=== PATIENT | male | born 1955 | race Caucasian/White ===

== ENCOUNTER 2016-11-09 07:23 | Observation (INO) | payer BC ==
[2016-11-09] VITALS (7 sets, daily range): BP systolic 111–199; BP diastolic 60–86; PULSE 64–102; RESP 16–20; TEMP 97.7–98; O2SAT 96–97
[~2016-11-09] VITALS: Ht 177.8 cm; Wt 90.0 kg
[2016-11-09] MEDS ORDERED: PRAV40TA2 PO (07:43)
[2016-11-09] MEDS ORDERED: CIAL5TAB PO (07:43)
[2016-11-09] MEDS ORDERED: BENA20TA3 PO (07:43)
[2016-11-09] MEDS ORDERED: VITA100021 SL (07:43)
[2016-11-09] MEDS ORDERED: METH36 PO (07:43)
[2016-11-09] MEDS ORDERED: ARIP1TAB7 PO (07:43)
[2016-11-09] MEDS ORDERED: ASPI81CH37 CHEW (07:43)
[2016-11-09] MEDS ORDERED: BUPR1TAB74 PO (07:43)
[2016-11-09] MEDS ORDERED: PIOG1TAB39 PO (07:43)
[2016-11-09] MEDS ORDERED: CINN500C12 PO (07:43)
[2016-11-09] MEDS ORDERED: CLOP75TA PO (07:43)
[2016-11-09] MEDS ORDERED: ONDANSETRON HCL 4 MG/2 ML VIAL IV PUSH ONE (07:45)
[2016-11-09] MEDS ORDERED: SODIUM CHLORIDE 0.9% FLUSH 10 ML FLUSH IVF PRN (07:45)
[2016-11-09] MEDS ORDERED: NITROGLYCERIN 2% OINT 1 GM PACKET TOP ONE (07:45)
[2016-11-09] MEDS ORDERED: MORPHINE SULFATE 4 MG/ML INJ IV PUSH ONE (07:45)
[2016-11-09] MEDS ORDERED: ASPIRIN 81 MG CHEW TAB PO ONE (07:45)
[2016-11-09 08:05] LABS: AUTOMATED NEUTROPHIL # 7.3 TH/MM3 (1.8-7.7); BASOPHIL % 0.3 % (0.0-2.0); EOSINOPHIL % 0.5 % (0.0-4.0); HEMATOCRIT 40.5 % (39.0-51.0); HEMO FLAGS DIFF FINAL; LYMPH % 15.8 % (9.0-44.0); LYMPHOCYTE # 1.5 TH/MM3 (1.0-4.8); MEAN CELL VOLUME 89.9 FL (80.0-100.0); MEAN CORPUSCULAR HEMOGLOBIN 29.3 PG (27.0-34.0); MEAN CORPUSCULAR HGB CONC 32.5 % (32.0-36.0); MONO % 7.9 % (0.0-8.0); NEUT % 75.5 % (16.0-70.0); PLATELET COUNT 254 TH/MM3 (150-450); RED CELL DISTRIBUTION WIDTH 14.6 % (11.6-17.2); WHITE BLOOD COUNT 9.6 TH/MM3 (4.0-11.0)
--- NOTE | 2016-11-09 08:14 | RADRPT ---
EXAM DATE/TIME: 11/09/2016 07:40 [place] COMPARISON: No previous studies available for comparison. INDICATIONS : Chest pain MEDICAL HISTORY : Hypertension. Diabetes mellitus type II. SURGICAL HISTORY : None. ENCOUNTER: Initial ACUITY: 1 day PAIN SCORE: 6/10 LOCATION: Bilateral chest FINDINGS: A single view of the chest demonstrates the lungs to be symmetrically aerated without evidence of mas s, infiltrate or effusion. The cardiomediastinal contours are unremarkable. Osseous structures are intact. CONCLUSION: No acute disease. Derrick Joseph MD on November 09, 2016 at 8:11 Board Certified Radiologist. This report was verified electronically.
[2016-11-09 08:18] LABS: APTT (PATIENT) 24.4 SEC (24.3-30.1); PROTHROMBIN TIME - PATIENT 10.6 SEC (9.8-11.6)
[2016-11-09 08:25] LABS: ANION GAP 6 MEQ/L (5-15); BICARBONATE 28.6 MEQ/L (21.0-32.0); BLOOD UREA NITROGEN 16 MG/DL (7-18); CHLORIDE 104 MEQ/L (98-107); GLOMERULAR FILTRATION RATE 58 ML/MIN (>89); MAGNESIUM 1.8 MG/DL (1.5-2.5); POTASSIUM 4.3 MEQ/L (3.5-5.1); SODIUM (NA) 139 MEQ/L (136-145)
[2016-11-09 08:29] LABS: CREATINE KINASE 243 U/L (39-308)
[2016-11-09 08:42] LABS: CKMB 1.2 NG/ML (0.5-3.6)
--- NOTE | 2016-11-09 08:42 | PD ---
HPI . Chest pain Chief Complaint: Chest Pain Time Seen by Provider: 07:36 Travel History International Travel<30 days: No Contact w/Intl Traveler<30days: No Traveled to known affect area: No History of Present Illness HPI This patient presents with a chief complaint of chest pain. Onset was 3 hours prior to presentation and is continuous. It awakened him from sleep. He states it is located just to the right of his sternum and he describes it as an ache. He rates the pain 7/10. He notes no modifying factors. It is associated with some mild nausea but no shortness of breath, diaphoresis, dizziness. He denies any previous similar history. He states that he does not use tobacco products, alcohol or illicit drugs. He does have a past medical history of hypertension, hyperlipidemia, diabetes and previous CVA. PFSH Past Medical History Hx Anticoagulant Therapy: Yes (plavix) Cerebrovascular Accident: Yes Diabetes: Yes Patient Takes Glucophage: Yes Hypertension: Yes Thyroid Disease: Yes Tetanus Vaccination: > 5 Years Influenza Vaccination: Yes Past Surgical History Surgical History: No Previous Surgery Social History Alcohol Use: No Tobacco Use: No Substance Use: No Allergies-Medications (Allergen,Severity, Reaction): Coded Allergies: No Known Allergies (Unverified , 11/09/16) Reported Meds & Prescriptions Reported Meds & Active Scripts Active Reported Clopidogrel (Clopidogrel Bisulfate) 75 Mg Tab 75 Mg PO DAILY Aspirin Low Dose (Aspirin) 81 Mg Chew 81 Mg CHEW DAILY Pravastatin 40 Mg Tab 40 Mg PO DAILY Cialis (Tadalafil) 5 Mg Tab 5 Mg PO DAILY Do not exceed 1 dose/day. Benazepril-Hydrochlorothiazide 20-12.5 Mg Tab 1 Tab PO DAILY Vitamin B-12 (Cyanocobalamin) 1,000 Mcg Subl 1,000 Mcg SL DAILY Hm Cinnamon (Cinnamon) 500 Mg Cap 1,000 Mg PO DAILY Concerta (Methylphenidate HCl) 36 Mg Gaudencio 36 Mg PO DAILY Pioglitazone-Metformin 15-850 mg Tab 1 Tab PO BID Bupropion HCl ER 12 HR (Bupropion HCl) 200 Mg Tab 200 Mg PO Q12HR Abilify (Aripiprazole) 20 Mg Tab 20 Mg PO DAILY Review of Systems Except as stated in HPI: all other systems reviewed are Neg General / Constitutional: No: Fever, Chills HENT: No: Headaches, Lightheadedness Cardiovascular: Positive: Chest Pain or Discomfort Respiratory: No: Shortness of Breath Gastrointestinal: No: Nausea Physical Exam Narrative GENERAL: The patient is lying very quietly on the stretcher in no acute distress. He has his eyes closed most of the time. SKIN: Warm and dry. HEAD: Atraumatic. Normocephalic. EYES: Pupils equal and round. Extraocular movements are intact. ENT: No nasal bleeding or discharge. Mucous membranes pink and moist. NECK: Trachea midline. Neck is supple. CARDIOVASCULAR: Regular rate and rhythm. Heart sounds are normal. RESPIRATORY: No accessory muscle use. Lungs are clear with good air movement throughout. Chest wall is nontender to palpation. GASTROINTESTINAL: Abdomen soft, non-tender, nondistended. MUSCULOSKELETAL: No obvious deformities. No edema. NEUROLOGICAL: Awake and alert. No obvious cranial nerve deficits. Motor grossly within normal limits. Normal speech. PSYCHIATRIC: Appropriate mood and affect; insight and judgment normal. Data Data Last Documented VS Vital Signs Date Time Temp Pulse Resp B/P (MAP) Pulse Ox O2 Delivery O2 Flow Rate FiO2 11/09/16 07:44 18 97 Room Air 11/09/16 07:33 66 11/09/16 07:26 97.7 Orders Orders Electrocardiogram (11/09/16 ) Electrocardiogram (11/09/16 07:36) Basic Metabolic Panel (Bmp) (11/09/16 07:36) Ckmb (Isoenzyme) Profile (11/09/16 07:36) Complete Blood Count With Diff (11/09/16 07:36) Magnesium (Mg) (11/09/16 07:36) Prothrombin Time / Inr (Pt) (11/09/16 07:36) Act Partial Throm Time (Ptt) (11/09/16 07:36) Troponin I (11/09/16 07:36) Chest, Single Ap (11/09/16 07:36) Ecg Monitoring (11/09/16 07:36) Iv Access Insert/Monitor (11/09/16 07:36) Oximetry (11/09/16 07:36) Aspirin Chew (Aspirin Chew) (11/09/16 07:45) Morphine Inj (Morphine Inj) (11/09/16 07:45) Nitroglycerin 2% Oint (Nitroglycerin 2% (11/09/16 07:45) Sodium Chloride 0.9% Flush (Ns Flush) (11/09/16 07:45) Ondansetron Inj (Zofran Inj) (11/09/16 07:45) CKMB (11/09/16 07:51) CKMB% (11/09/16 07:51) Labs Laboratory Tests Test 11/09/16 07:51 White Blood Count 9.6 TH/MM3 Red Blood Count 4.50 MIL/MM3 Hemoglobin 13.2 GM/DL Hematocrit 40.5 % Mean Corpuscular Volume 89.9 FL Mean Corpuscular Hemoglobin 29.3 PG Mean Corpuscular Hemoglobin Concent 32.5 % Red Cell Distribution Width 14.6 % Platelet Count 254 TH/MM3 Mean Platelet Volume 8.9 FL Neutrophils (%) (Auto) 75.5 % Lymphocytes (%) (Auto) 15.8 % Monocytes (%) (Auto) 7.9 % Eosinophils (%) (Auto) 0.5 % Basophils (%) (Auto) 0.3 % Neutrophils # (Auto) 7.3 TH/MM3 Lymphocytes # (Auto) 1.5 TH/MM3 Monocytes # (Auto) 0.8 TH/MM3 Eosinophils # (Auto) 0.0 TH/MM3 Basophils # (Auto) 0.0 TH/MM3 CBC Comment DIFF FINAL Differential Comment Prothrombin Time 10.6 SEC Prothromb Time International Ratio 1.0 RATIO Activated Partial Thromboplast Time 24.4 SEC Blood Urea Nitrogen 16 MG/DL Creatinine 1.27 MG/DL Random Glucose 181 MG/DL Calcium Level 9.4 MG/DL Magnesium Level 1.8 MG/DL Sodium Level 139 MEQ/L Potassium Level 4.3 MEQ/L Chloride Level 104 MEQ/L Carbon Dioxide Level 28.6 MEQ/L Anion Gap 6 MEQ/L Estimat Glomerular Filtration Rate 58 ML/MIN Total Creatine Kinase 243 U/L Troponin I LESS THAN 0.02 NG/ML MDM Medical Decision Making Medical Screen Exam Complete: Yes Emergency Medical Condition: Yes Medical Record Reviewed: Yes (this patient has no old records in our system.) Interpretation(s) EKG shows a sinus rhythm with no acute changes. Differential Diagnosis Differential diagnosis of chest pain includes but is not limited to musculoskeletal pain, pulmonary embolism, acute coronary syndrome, pneumonia, pleurisy Narrative Course This patient has cardiac risk factors. He presents with a three-hour history of chest pain. His initial evaluation of chest pain is negative. The patient is agreeable to admission to the chest pain center for further evaluation. In the meantime, his chest pain is resolved with aspirin, nitroglycerin and morphine. Last Impressions Chest X-Ray 11/09/16 0736 Signed Impressions: Service Date/Time: , November 09, 2016 07:40 - CONCLUSION: No acute disease. Derrick Joseph MD CBC & BMP Diagram 11/09/16 07:51 Calcium Level 9.4, Magnesium Level 1.8 Initial cardiac enzymes are negative. Critical Care Narrative Aggregate critical care time was 30 minutes. Time to perform other separately billable procedures was not included in the critical care time. My time did not include minutes spent treating any other patients simultaneously or on activities that did not directly contribute to the patient's treatment. The services I provided to this patient were to treat and/or prevent clinically significant deterioration due to chest pain, rule out ACS I provided critical care services requiring my management, as noted below: Chart data review, documentation time, medication orders and management, vital sign assessments/reviewing monitor data, ordering and reviewing lab tests, ordering and interpreting/reviewing x-rays and diagnostic studies, care of the patient and discussion of the patient with the admitting physicians Diagnosis Primary Impression: Chest pain Qualified Codes: R07.9 - Chest pain, unspecified Admitting Information Admitting Physician Requests: Observation Condition: Stable Julia Carr MD Nov 09, 2016 08:42
[2016-11-09] MEDS ORDERED: ONDANSETRON HCL 4 MG/2 ML VIAL IV PRN (10:00)
[2016-11-09] MEDS ORDERED: NITROGLYCERIN 0.4 MG SL 25 TABS/BTL SL PRN (10:00)
[2016-11-09] MEDS ORDERED: ACETAMINOPHEN 500 MG CPLT PO PRN (10:00)
[2016-11-09] MEDS ORDERED: SODIUM CHLORIDE 0.9% FLUSH 10 ML FLUSH IV FLUSH PRN (10:00)
[2016-11-09 11:59] LABS: CREATINE KINASE 202 U/L (39-308)
--- NOTE | 2016-11-09 12:03 | HHI.HP ---
HPI Primary Care Physician Unknown Chief Complaint Chest pain History of Present Illness 61-year-old male with history of diabetes, CVA, hypertension, and hyperlipidemia presents to emergency room for further evaluation of chest pain. Onset 3 AM. Pain awoken him from sleep. Location right inframammary area. Characterized as an aching feeling, also described as indigestion. Duration for 5 hours. No radiation of pain. Associated symptoms included nausea and diaphoresis. Denies shortness of breath, vomiting, and it did not hurt to take a deep breath. No particular movement or position may pain better or worse. No known precipitating factors. Relieved with morphine given in ER. Denies similar pain in the past. Review of Systems General: No fatigue,weakness, fever, chills, or recent illness. Has been encouraged general state of health. He and his on vacation from [place]. Arrived Sunday, did not drive sraight down, took about 5 days to arrive due to multiple areas they visited. No history of DVT or PE. HEENT:No QURESHI, no nasal congestion or drainage, no dysphasia. CV: As stated above. No current chest pain or pressure. No palpitations or history of A. fib. No Intermittent leg pain or lower leg edema. RESP: No SOB, cough, wheeze, recent URI, or history of asthma GI: No nausea, vomiting, bowel changes, diarrhea, or blood in the stool. No change in appetite. : No dysuria EXT: No lower leg edema, no paraesthesias, reports history of a "foot drop in right foot" although does not notice any deficit. Ambulates independently, no need for cane or walker. MS: Chronic intermittent back pain, history of degenerative disk disease. No change in ROM. No injury, trauma, or recent fall. NEURO: History of CVA last year. Reports he woke up one morning with a facial droop and slurred speech. Did not immediately go to hospital. Seen his PCP 24 hours after then sent to ER for further testing. Reason for CVA never detected, taking Plavix since. No change in memory, difficulty with balance, LOC, or motor /sensory deficits PSYCH: History of anxiety and depression, stating he is stable on current medication regimen. SKIN: No rashes, no concerning lesions Past Family Social History Allergies: Coded Allergies: No Known Allergies (Unverified , 11/09/16) Past Medical History Hypertension, hyperlipidemia, diabetes, CVA 1, chronic back pain, anxiety, depression Past Surgical History None Reported Medications Reported Meds & Active Scripts Active Reported Clopidogrel (Clopidogrel Bisulfate) 75 Mg Tab 75 Mg PO DAILY Aspirin Low Dose (Aspirin) 81 Mg Chew 81 Mg CHEW DAILY Pravastatin 40 Mg Tab 40 Mg PO DAILY Cialis (Tadalafil) 5 Mg Tab 5 Mg PO DAILY Do not exceed 1 dose/day. Benazepril-Hydrochlorothiazide 20-12.5 Mg Tab 1 Tab PO DAILY Vitamin B-12 (Cyanocobalamin) 1,000 Mcg Subl 1,000 Mcg SL DAILY Hm Cinnamon (Cinnamon) 500 Mg Cap 1,000 Mg PO DAILY Concerta (Methylphenidate HCl) 36 Mg Gaudencio 36 Mg PO DAILY Pioglitazone-Metformin 15-850 mg Tab 1 Tab PO BID Bupropion HCl ER 12 HR (Bupropion HCl) 200 Mg Tab 200 Mg PO Q12HR Abilify (Aripiprazole) 20 Mg Tab 20 Mg PO DAILY Active Ordered Medications Current Medications Medications (Trade) Dose Ordered Sig/Kelsey Route Start Time Stop Time Status Last Admin (NS Flush) 2 ml UNSCH PRN IV FLUSH 11/09/16 10:00 (NS Flush) 2 ml BID IV FLUSH 11/09/16 21:00 (Tylenol) 500 mg Q4H PRN PO 11/09/16 10:00 (Zofran Inj) 4 mg Q6H PRN IV 11/09/16 10:00 (Nitrostat Sl) 0.4 mg Q5M PRN SL 11/09/16 10:00 (Aspirin) 325 mg DAILY PO 11/10/16 09:00 Family History Brother MIx3 beginning in mid 40s. Father CABG x4 age 67. Mother [place] age 70. Social History Known diabetes, hypertension, and hyperlipidemia. No known coronary artery disease. Lifelong nonsmoker. Rare alcohol use. Denies any illegal drug use. Endorses an active lifestyle. Past cardiac testing None Physical Exam Vital Signs Vital Signs Date Time Temp Pulse Resp B/P (MAP) Pulse Ox O2 Delivery O2 Flow Rate FiO2 11/09/16 10:02 97.7 73 18 125/69 (87) 96 11/09/16 09:30 70 18 152/83 (106) 97 Room Air 11/09/16 09:14 11/09/16 08:40 18 8/31/17 07:44 18 97 Room Air 11/09/16 07:33 66 18 97 Room Air 11/09/16 07:26 97.7 64 20 199/86 (123) 97 Room Air Physical Exam GENERAL: Alert WN, WD, NAD, pleasant, male HEAD: NC, AT EYES: Sclera clear NECK: Supple, no masses, trachea midline CV: RRR, without murmur, rub, gallop, no JVD, S1-S2 no S3-S4. No carotid bruits. RESP: Clear lungs throughout bilateral, no crackles, wheeze, rhonchi, symmetrical chest rise, nonlabored, able to speak in full sentences ABD: Soft, NT, ND, no masses, positive bowel tones EXT: Pulses +24, no dependent edema MS: Normal tone 4 extremities, nontender, no obvious deformities, full range of motion NEURO: CN II through CN XII grossly intact, motor strength 5/5, PSYCH: A+O 3, pleasant affect, appropriate speech, appropriate mood and affect , insight and judgment SKIN: Normal turgor, normal texture, no lesions, no rashes, brisk cap refill, even hair distribution Laboratory Laboratory Tests Test 11/09/16 07:51 11/09/16 10:55 White Blood Count 9.6 Red Blood Count 4.50 Hemoglobin 13.2 Hematocrit 40.5 Mean Corpuscular Volume 89.9 Mean Corpuscular Hemoglobin 29.3 Mean Corpuscular Hemoglobin Concent 32.5 Red Cell Distribution Width 14.6 Platelet Count 254 Mean Platelet Volume 8.9 Neutrophils (%) (Auto) 75.5 Lymphocytes (%) (Auto) 15.8 Monocytes (%) (Auto) 7.9 Eosinophils (%) (Auto) 0.5 Basophils (%) (Auto) 0.3 Neutrophils # (Auto) 7.3 Lymphocytes # (Auto) 1.5 Monocytes # (Auto) 0.8 Eosinophils # (Auto) 0.0 Basophils # (Auto) 0.0 CBC Comment DIFF FINAL Differential Comment Prothrombin Time 10.6 Prothromb Time International Ratio 1.0 Activated Partial Thromboplast Time 24.4 Blood Urea Nitrogen 16 Creatinine 1.27 Random Glucose 181 Calcium Level 9.4 Magnesium Level 1.8 Sodium Level 139 Potassium Level 4.3 Chloride Level 104 Carbon Dioxide Level 28.6 Anion Gap 6 Estimat Glomerular Filtration Rate 58 Total Creatine Kinase 243 202 Creatine Kinase MB 1.2 Troponin I LESS THAN 0.02 LESS THAN 0.02 Result Diagram: 11/09/16 0751 11/09/16 0751 Imaging Last Impressions Chest X-Ray 11/09/16 0736 Signed Impressions: Service Date/Time: October 07:40 - CONCLUSION: No acute disease. Derrick Joseph MD Course EKG Normal sinus rhythm, normal, no ST or T-segment changes Caprini VTE Risk Assessment Caprini VTE Risk Assessment: No/Low Risk (score <= 1) Caprini Risk Assessment Model Point Value = 1 Point Value = 2 Point Value = 3 Point Value = 5 Age 41-60 Minor surgery BMI > 25 kg/m2 Swollen legs Varicose veins or History of unexplained or recurrent spontaneous Oral contraceptives or hormone replacement Sepsis (< 1 month) Serious lung disease, including pneumonia (< 1 month) Abnormal pulmonary function Acute myocardial infarction Congestive heart failure (< 1 month) History of inflammatory bowel disease Medical patient at bed rest Age 61-74 Arthroscopic surgery Major open surgery (> 45 min) Laparoscopic surgery (> 45 min) Malignancy Confined to bed (> 72 hours) Immobilizing plaster cast Central venous access Age >= 75 History of VTE Family history of VTE Factor V Leiden Prothrombin [id number] Lupus anticoagulant Anticardiolipin antibodies Elevated serum homocysteine Heparin-induced thrombocytopenia Other congenital or acquired thrombophilia Stroke (< 1 month) Elective arthroplasty Hip, pelvis, or leg fracture Acute spinal cord injury (< 1 month) Prophylaxis Regimen Total Risk Factor Score Risk Level Prophylaxis Regimen 0-1 Low Early ambulation 2 Moderate Order ONE of the following: *Sequential Compression Device (SCD) *Heparin 5000 units SQ BID 3-4 Higher Order ONE of the following medications: *Heparin 5000 units SQ TID *Enoxaparin/Lovenox 40 mg SQ daily (WT < 150 kg, CrCl > 30 mL/min) *Enoxaparin/Lovenox 30 mg SQ daily (WT < 150 kg, CrCl > 10-29 mL/min) *Enoxaparin/Lovenox 30 mg SQ BID (WT < 150 kg, CrCl > 30 mL/min) AND/OR *Sequential Compression Device (SCD) 5 or more Highest Order ONE of the following medications: *Heparin 5000 units SQ TID (Preferred with Epidurals) *Enoxaparin/Lovenox 40 mg SQ daily (WT < 150 kg, CrCl > 30 mL/min) *Enoxaparin/Lovenox 30 mg SQ daily (WT < 150 kg, CrCl > 10-29 mL/min) *Enoxaparin/Lovenox 30 mg SQ BID (WT < 150 kg, CrCl > 30 mL/min) AND *Sequential Compression Device (SCD) Assessment and Plan Assessment and Plan #1 Atypical chest pain-admitted to chest pain center. Ruled out with 3 sets of EKGs and cardiac enzymes. Will be seen and evaluated by Dr. Mariia Valle. Discussed the likelihood of completing exercise stress test later this afternoon if ruled out. Patient agreeable to plan of care. #2 History of CVA-continue Plavix #3 Hypertension-continue benazepril/HCTZ #4 Diabetes-hold anti-glycemic at this time #5 Hyperlipidemia-continue pravastatin #6 GERD-discussed presenting symptoms may have been GI related. If stress test unremarkable, omeprazole for 30 days, follow up with PCP to determine if he should continue taking. Ce Rice Nov 09, 2016 12:03
[2016-11-09] MEDS ORDERED: PRAVASTATIN SOD 40 MG TAB PO SCH (12:15)
[2016-11-09] MEDS ORDERED: NON-FORMULARY DRUG (Benazepril-Hydrochlorothiazide 1 TAB) PO SCH (12:15)
[2016-11-09] MEDS ORDERED: CLOPIDOGREL 75 MG TAB PO SCH (12:15)
[2016-11-09] MEDS ORDERED: buPROPion HCL 100 MG SUSTAINED RELEASE TAB PO SCH (12:15)
[2016-11-09 14:52] LABS: CREATINE KINASE 189 U/L (39-308)
[2016-11-09 15:05] LABS: CKMB 0.9 NG/ML (0.5-3.6)
--- NOTE | 2016-11-09 18:10 | EKG ---
Date Performed: 11/09/2016 Time Performed: 14:06:04 PTAGE: 61 years EKG: Sinus rhythm WITH MARKED SINUS ARRHYTHMIA BORDERLINE ECG Since PREVIOUS TRACING , no significant change noted PREVIOUS TRACIN11/09/2016 11.32 DOCTOR: Mariia Valle Interpretating Date/Time 11/09/2016 18:08:34
--- NOTE | 2016-11-09 18:10 | EKG ---
Date Performed: 11/09/2016 Time Performed: 11:32:00 PTAGE: 61 years EKG: Sinus rhythm NORMAL ECG Since PREVIOUS TRACING , no significant change noted PREVIOUS TRACIN11/09/2016 07.35 DOCTOR: Mariia Valle Interpretating Date/Time 11/09/2016 18:08:47
--- NOTE | 2016-11-09 18:12 | EKG ---
Date Performed: 11/09/2016 Time Performed: 07:35:53 PTAGE: 61 years EKG: Sinus rhythm WITH MARKED SINUS ARRHYTHMIA BORDERLINE ECG NO PREVIOUS TRACING DOCTOR: Mariia Valle Interpretating Date/Time 11/09/2016 18:11:19
--- NOTE | 2016-11-09 18:32 | TR ---
Date Performed: 11/09/2016 Time Performed: 18:16:27 DOCTOR: Mariia Valle DRUG LIST: CLINICAL HISTORY: REASON FOR TEST: Chest pain REASON FOR ENDING: OBSERVATION: CONCLUSION: Shay protocol completed. Stopped sec to exceeding target heart rate and leg fatigue . Maximum ZW=808 Target HR Achieved=93.0% Maximum GD=574/80 Total Exercise Time=5:01. No reprod chest pain/discomfort. No ectopy. No st t changes to suggest ischemia. Good exercise tolerance. COMMENTS:
[2016-11-09] MEDS ORDERED: OMEP40CA2 PO (18:40)
[2016-11-09] MEDS ORDERED: SODIUM CHLORIDE 0.9% FLUSH 10 ML FLUSH IV FLUSH SCH (21:00)
[2016-11-10] MEDS ORDERED: ASPIRIN 325 MG TAB PO SCH (09:00)
[2016-11-10] MEDS ORDERED: LISINOPRIL 20 MG TAB PO SCH (09:00)
[2016-11-10] MEDS ORDERED: HYDROCHLOROTHIAZIDE 25 MG TAB PO SCH (09:00)
== END 2016-11-09 18:58 | disposition home or self-care (01) ==
LOC: NEPE 07:23 → NEDA 08:44 → NEPFCDU 09:40
PROVIDERS: ADMIT Internal Medicine Interventional Cardiology; ATTEND Internal Medicine Interventional Cardiology
DX: R07.89 Other chest pain (principal); E11.9 Type 2 diabetes mellitus without complications; R94.31 Abnormal electrocardiogram [ECG] [EKG]; I10 Essential (primary) hypertension; K21.9 Gastro-esophageal reflux disease without esophagitis; Z86.73 Personal history of transient ischemic attack (TIA), and cerebral infarction without residual deficits
CPT/HCPCS: 71010; 80048; 82550; 82552; 83735; 84484; 85025; 85610; 85730; 93005; 93017; 96374; 96375; 99291; G0378; J2270; J2405